=== PATIENT | female | born 1985 | race Caucasian/White ===

== ENCOUNTER 2016-10-16 21:20 | Emergency (ER) | payer OTHER ==
[~2016-10-16] VITALS: Ht 157.5 cm; Wt 43.1 kg
[~2016-10-16 21:20] MED LIST: CLINDAMYCIN HY300 MG PO; ZOFRAN ODT4 MG PO
[2016-10-16] MEDS ORDERED: METOPROLOL SUCC50 M2 PO (21:38)
--- NOTE | 2016-10-16 21:46 | ED GENERAL ADULT ---
History of Present Illness General Chief Complaint: General Adult Stated Complaint: PT IS HAVING PAIN IN THE RIGHT SIDE Source: patient Exam Limitations: no limitations Reconcile Medications Albuterol Sulfate (Proventil Hfa) 90 MCG HFA.AER.AD 2 PUF INH 4 TIMES/DAY asthma Ipratropium [place] 0.2 MG/ML (0.02 %) SOLUTION 1 Vial INH/MARIANA 4 TIMES/DAY asthma Ipratropium/Albuterol Sulfate (Iprat-Albut 0.5-3(2.5) MG/3 Ml) 0.5 MG-3 MG (2.5 MG BASE)/3 ML AMPUL.NEB 1 INH INH Q6P PRN sob Metoprolol Succinate 50 MG TAB.ER.24H 1 TAB PO DAILY SVT (Reported) Prednisone 20 MG TABLET 1 TAB PO BID asthma Triage Note: TRIAGE: PATIENT TO ER FROM HOME S/P STOMACH BUG THURSDAY," W/ +OWNER COUGH X 2-3 WEEKS W/ INTETMITTENT MUCOUS. ALSO REPORTING "OUT OF ALBUTEROL INHALER." REPORTS R SIDE RIB PAIN /10 W/ COUGHING AND +SOB, NO ACUTE RESP DISTRESS NOTED. AFEBRILE, DENIES FEVERS AT HOME. Triage Nurses Notes Reviewed? yes : No Patient currently breastfeeds: No HPI: patient is a 30 year old lady that came to the ED complaining that she 'can't breathe'. Patient reports that 2 weeks ago she had a cold that she got from her kids, followed by stomach upset with nausea vomiting and diarrhea. she also had fever of max 102 on Thursday night. since about Thursday patient has been having SOB when going out in the cold or while doing daily activities. She says she feels winded. also reports coughing with yellowish sputum which she always has, as she smokes. she reports right lower stabbing chest pain when coughing. Patient has a PMH of asthma on albuterol inlaher and nebulizer (she has run out of the inhalers). she also has SVT, takes metoprolol succinate 50 mg daily, currently denies palpitation or chest pain. also history of migraine headache for which she takes tylenol as needed. (DEVONTE NUNEZ,OMEGA) Vital Signs & Intake/Output Vital Signs & Intake/Output Vital Signs Date Time Temp Pulse Resp B/P Pulse O2 O2 Flow FiO2 Ox Delivery Rate 10/16 2350 97.2 70 18 131/72 98 Room Air 10/16 2300 98 Room Air 10/16 2248 99 10/16 2135 97.1 72 18 141/74 98 Room Air ED Intake and Output 10/17 0000 10/16 1200 Intake Total Output Total Balance Patient 43.091 kg Weight Allergies Coded Allergies: Penicillins (Severe, ASTHMA ATTACKS 10/16/16) (PADMINI EDWARDS MD) Past History Travel History Traveled to [place] past 21 day No Medical History Any Pertinent Medical History? see below for history Neurological: NONE EENT: DENTAL SURGERY, migraine headaches Cardiovascular: SVT Respiratory: asthma Gastrointestinal: NONE Hepatic: NONE Renal: NONE Musculoskeletal: NONE Psychiatric: NONE Endocrine: NONE Blood Disorders: NONE Cancer(s): NONE OUTSIDE SALES/Reproductive: NONE Surgical History Surgical History: non-contributory Psychosocial History What is your primary language American Tobacco Use: Current Daily Use Daily Tobacco Use Amount/Type: => 5 Cigarettes daily ETOH Use: denies use Illicit Drug Use: denies illicit drug use Family History Hx Contributory? No (OMEGA WHITNEY MD) Review of Systems Review of Systems Constitutional: Denies: chills, fever, weakness. EENTM: Reports: no symptoms. Respiratory: Reports: cough, short of breath, sputum production. Denies: wheezing. Cardiovascular: Denies: chest pain, palpitations, peripheral edema. GI: Denies: abdominal pain, diarrhea, nausea, vomiting. Genitourinary: Reports: no symptoms. Musculoskeletal: Reports: no symptoms. Skin: Reports: no symptoms. Neurological/Psychological: Reports: headache. Denies: weakness. Hematologic/Endocrine: Reports: no symptoms. (OMEGA WHITNEY MD) Physical Exam Physical Exam General Appearance: well developed/nourished, no apparent distress, alert, awake , comfortable Head: atraumatic, normal appearance Eyes: Bilateral: normal appearance, PERRL, EOMI. Ears, Nose, Throat: normal pharynx, normal ENT inspection Neck: normal inspection, supple, full range of motion Respiratory: normal breath sounds, chest non-tender, no respiratory distress, quiet respiration, no wheezing, decreased breath sounds Cardiovascular: regular rate/rhythm Peripheral Pulses: 2+ radial (R), 2+ radial (L) Gastrointestinal: normal bowel sounds, soft, non-tender, no organomegaly Back: normal inspection, normal range of motion Extremities: normal inspection, normal capillary refill, normal range of motion, no edema Neurologic/Psych: no motor/sensory deficits, awake, alert, oriented x 3, normal gait Skin: intact, normal color, warm/dry Core Measures ACS in differential dx? No CVA/TIA Diagnosis: No Severe Sepsis Present: No Septic Shock Present: No (OMEGA WHITNEY MD) Progress Differential Diagnoses I considered the following diagnoses in my evaluation of the patient: [asthma exacerbation due to URTI, rule out pneumonia] Initial ED EKG: none (OMEGA WHITNEY MD) Plan of Care: Current Medications Sig/Hector Start time Last Medication Dose Stop Time Status Admin Albuterol Sulfate 3 ML ONCE ONE 10/16 2229 CAN (Proventil) 10/16 2230 Ipratropium [place] 2.5 ML ONCE ONE 10/16 2229 CAN (Atrovent) 10/16 2230 Departure Departure Disposition: HOME OR SELF CARE Condition: Stable Clinical Impression Primary Impression: Pneumonia Ruled Out Impressions: Asthma exacerbation, mild Additional Instructions: Please follow up with your pcp with a week of discharge. Please come back to the ED if symptoms worsens or recur. Departure Forms: Customer Survey General Discharge Information Prescriptions: Current Visit Scripts Ipratropium/Albuterol Sulfate (Iprat-Albut 0.5-3(2.5) MG/3 Ml) 1 INH INH Q6P PRN sob #1 BOX Prednisone 1 TAB PO BID 5 Days Albuterol Sulfate (Proventil Hfa) 2 PUF INH 4 TIMES/DAY #1 INHAL Ipratropium [place] 1 Vial INH/MARIANA 4 TIMES/DAY #300 ML Comments patient's symptoms have improved after respiratory therapy, she is given60 mg of prednisone, will continue 20 mg BID for 5 days. Also albuterol and ipratropium bromide is given to go home with. (OMEGA WHITNEY MD) Resident Co-Sign Statement Statement: ED Attending supervision documentation- x I saw and evaluated the patient. I have also reviewed all the pertinent lab results and diagnostic results. I agree with the findings and the plan of care as documented in the Resident's documentation. [] I have reviewed the ED Record and agree with the Resident's documentation. [] Additions or exceptions (if any) to the Resident's note and plan are summarized below: [] (JERRY NUNEZ,PADMINI) Critical Care Note Critical Care Note Critical Care Time: non-applicable (JERRY NUNEZ,PADMINI)
--- NOTE | 2016-10-16 23:13 | RADIOLOGY REPORT ---
EXAMINATION: XR CHEST CLINICAL INFORMATION: Shortness of breath, fever, and cough COMPARISON: None available TECHNIQUE: PA and lateral views of the chest were obtained. FINDINGS: Symmetric lung inflation. No focal consolidation, pleural effusion, or pneumothorax. Cardiac silhouette size is normal. No acute osseous findings.. IMPRESSION: No acute pulmonary process. No focal pneumonia.
[2016-10-16] MEDS ORDERED: IPRATROPIU0.2 MG/1 M INH/SOL (23:37)
[2016-10-16] MEDS ORDERED: PROVENTIL HFA6.7 GM INH (23:37)
[2016-10-16] MEDS ORDERED: PREDNISONE20 M1 PO (23:37)
[2016-10-16 23:50] VITALS: BP 131/72
[2016-10-16] MEDS ORDERED: IPRAT-ALBUT 0.5-3 ML INH (23:52)
== END 2016-10-16 23:55 ==
LOC: ERH 21:20
DX: F17.210 Nicotine dependence, cigarettes, uncomplicated (principal); J18.9 Pneumonia, unspecified organism; J45.901 Unspecified asthma with (acute) exacerbation
CPT/HCPCS: 1263